=== PATIENT | male | born 1965 | race Caucasian/White ===

== ENCOUNTER 2018-03-09 19:21 | Emergency (ER) | payer MEDICARE, MEDICAID ==
[~2018-03-09] VITALS: Ht 190.5 cm; Wt 81.6 kg
[2018-03-09] MEDS ORDERED: DOCUSATE SODIU100 MG ORAL (19:36)
[2018-03-09] MEDS ORDERED: LORAZEPAM1 MG ORAL (19:36)
[2018-03-09] MEDS ORDERED: RESTORIL30 MG ORAL (19:36)
[2018-03-09] MEDS ORDERED: SENNA-S TABLET1 EACH PO (19:36)
[2018-03-09] MEDS ORDERED: LACTULOSE20 GM/301 ORAL (19:36)
[2018-03-09] MEDS ORDERED: ZYPREXA10 MG ORAL (19:36)
[2018-03-09] MEDS ORDERED: CARAFATE1 G1 ORAL (19:36)
[2018-03-09] MEDS ORDERED: BENZTROPINE ME0.5 MG PO (19:36)
[2018-03-09] MEDS ORDERED: ASCORBIC ACID500 MG GT (19:36)
[2018-03-09] MEDS ORDERED: ACETAMINOPHEN325 M1 ORAL (19:36)
[2018-03-09 20:40] VITALS: BP 102/58
[2018-03-09 21:35] VITALS: BP 102/58
--- NOTE | 2018-03-09 21:35 | Emergency Room Report ---
History of Present Illness General Chief Complaint: Malfunctioning Gastric Tube Present Illness HPI Mr. Jacinto presents with a knot in the tubing of PEG from SNF. Patient is nonverbal. Allergies: Coded Allergies: No Known Allergies (Unverified , 03/09/18) Nursing Documentation-PMH Hx Gastrointestinal Problems: Yes - gerd, hyperkalemia, gastrostomy, History Of Psychiatric Problem: Yes - psychosis, schizophrenia, anxiety Hx Neurological Problems: Yes - muscle weakness Review of Systems All Other Systems: limited - nonverbal Physical Exam Vital Signs Date Time Temp Pulse Resp B/P (MAP) Pulse Ox O2 Delivery O2 Flow Rate FiO2 03/09/18 19:22 97.3 96 20 102/58 99 Room Air General Appearance: no apparent distress, alert Gastrointestinal: non tender, soft, other - peg tubing has distal knot Medical Decision Making Diagnostic Impression: Primary Impression: Malfunction of gastrostomy tube ER Course I revised the tubing by cutting 5 cm of the distal tubing and re-attaching the catheter/cap. dc'd back to SNF Last Vital Signs Date Time Temp Pulse Resp B/P (MAP) Pulse Ox O2 Delivery O2 Flow Rate FiO2 03/09/18 19:22 97.3 96 20 102/58 99 Room Air Disposition: SNF Condition: Stable Patient Instructions: Gastrostomy Tube Home Guide, Adult Rosmery Shields MD Mar 09, 2018 21:35
== END 2018-03-09 21:35 ==
LOC: EDBD 19:21 → EMR 19:45
DX: K94.23 Gastrostomy malfunction (principal); Y83.3 Surgical operation with formation of external stoma as the cause of abnormal reaction of the patient, or of later complication, without mention of misadventure at the time of the procedure; Y92.9 Unspecified place or not applicable; F41.9 Anxiety disorder, unspecified; F20.9 Schizophrenia, unspecified
CPT/HCPCS: 99283